=== PATIENT | male | born 1965 | race Caucasian/White ===

== ENCOUNTER 2018-03-30 07:16 | Day surgery (SDC) | payer BC ==
[~2018-03-30 07:16] MED LIST: ACETAMINOPHEN 1,000 MG/100 ML BTL IV ONE
[2018-03-30] MEDS ORDERED: BUPIVACAINE 0.25% W/EPI MPF 30ML VIAL IVP ONE (07:17)
[2018-03-30] MEDS ORDERED: SEVOFLURANE 250 ML INH ONE (07:17)
[2018-03-30] MEDS ORDERED: PROPOFOL 10 MG/ML VIAL IV ONE (07:17)
[2018-03-30] MEDS ORDERED: DEXAMETHASONE 4 MG/ML 1ML VIAL IVP ONE (07:17)
[2018-03-30] MEDS ORDERED: ONDANSETRON HCL IV 4 MG/2 ML VIAL IVP ONE (07:17)
[2018-03-30] MEDS ORDERED: KETOROLAC 30 MG/ML VIAL IVP ONE (07:17)
[2018-03-30] MEDS ORDERED: MIDAZOLAM HCL 2MG/2ML VIAL IV ONE (07:17)
[2018-03-30] MEDS ORDERED: FENTANYL PF 100MCG/2ML VIAL IV ONE (07:17)
--- NOTE | 2018-03-31 08:20 | Operative Note ---
DATE OF SURGERY: 03/30/2018 Surgeon: Patrice Baca DO PREOPERATIVE DIAGNOSIS: Torn medial meniscus of the right knee. POSTOPERATIVE DIAGNOSIS: Torn medial meniscus of the right knee. OPERATION: Arthroscopic partial medial meniscectomy, right knee. DESCRIPTION OF PROCEDURE: This 52-year-old male was taken to the operating room and placed in the supine position on the operating room table where general anesthesia was induced. The right lower extremity was elevated, exsanguinated, and the tourniquet inflated to 300 mmHg. Arthroscopic knee sarah applied. Right knee prepped with Hibiclens and draped in the usual sterile fashion. An inferolateral portal was established for the 4 mm arthroscope, and initial evaluation of the joint demonstrated normal appearance of the suprapatellar pouch. Patellofemoral articulation appeared normal. An inferomedial portal was established for probing. We did not demonstrate any pathology of the articular cartilage there. Medial and lateral gutters were examined and found to be normal. The lateral compartment was entered. Probing of the lateral meniscus and articular cartilage of the lateral compartment did not reveal any abnormalities. The intracondylar notch was examined, and the notch itself did not demonstrate any abnormalities of the ACL. However, there was a flap of the medial meniscus tucked up into the intracondylar notch. We probed this and pulled it back down into the medial compartment. A second flap was also seen to be tucked under the medial meniscus. These were extremely irregular and certainly not repairable. The rotating shaver was used to resect these flaps and then utilizing the baskets and rotating shaver, we further smoothed, trimmed, and balanced the meniscus to a stable rim. [place] of the tear being at approximately the 12-o'clock position but the tear extended from the posterior attachment to approximately the 2:30 to 3-o'clock position. All chips of meniscal tissue were then suctioned from the joint. The instruments were removed. The portals infiltrated with 0.25% Marcaine with epinephrine. Sterile dressings were applied, and the patient taken to the recovery room in satisfactory condition. GROSS PATHOLOGY: This patient demonstrated a complex tear of the medial meniscus with 2 large flaps, one going posterolaterally and the other tucked underneath the body of the medial meniscus. CC: HERMINIO Ro
== END 2018-03-30 10:05 | disposition home or self-care (01) ==
LOC: SUR 07:16
PROVIDERS: ATTEND Orthopaedic Surgery
DX: S83.231A Complex tear of medial meniscus, current injury, right knee, initial encounter (principal); Z21 Asymptomatic human immunodeficiency virus [HIV] infection status
CPT/HCPCS: 93005; J1885; J2405